=== PATIENT | female | born 1940 | race Caucasian/White ===

== ENCOUNTER 2022-05-17 08:42 | Day surgery (SDC) | payer MEDICARE, OTHER ==
[~2022-05-17] VITALS: Ht 157.5 cm; Wt 54.5 kg
[2022-05-17 09:05] VITALS: BP 130/67
[2022-05-17] MEDS ORDERED: INSU100V12 SQ (09:19)
[2022-05-17] MEDS ORDERED: INSU100C4 SQ (09:19)
[2022-05-17] MEDS ORDERED: DET2LAC PO (09:20)
[2022-05-17] MEDS ORDERED: CLON0.5T4 PO (09:22)
[2022-05-17] MEDS ORDERED: LIOT5TAB10 PO (09:23)
[2022-05-17] MEDS ORDERED: CALC-336 PO (09:23)
[2022-05-17] MEDS ORDERED: LEVO75TA7 PO (09:25)
[2022-05-17] MEDS ORDERED: LEVE750T66 PO (09:25)
[2022-05-17] MEDS ORDERED: fentaNYL/PF 50MCG/1 ML 2ML syringe ONE (09:50)
[2022-05-17] MEDS ORDERED: diphenhydrAMINE 50 mg/ml inj ONE (09:50)
[2022-05-17] MEDS ORDERED: LIDOcaine Viscous 15ml cup ONE (09:50)
[2022-05-17] MEDS ORDERED: MIDAZolam 1 MG/ML 5ML VIAL ONE (09:50)
[2022-05-17 10:11] VITALS: BP 133/70
[2022-05-17 10:21] VITALS: BP 134/74
[2022-05-17 10:31] VITALS: BP 137/64
[2022-05-17 10:41] VITALS: BP 139/71
== END 2022-05-17 10:51 | disposition home or self-care (01) ==
LOC: GI LAB 08:42
PROVIDERS: ATTEND Internal Medicine Gastroenterology
DX: K29.70 Gastritis, unspecified, without bleeding (principal)
CPT/HCPCS: 43239; J1200; J2250; J3010; J7030; Z7512; 88305; 99152; A4620

== ENCOUNTER 2024-07-17 14:37 | Outpatient (CLI) | payer MEDICARE, OTHER ==
[~2024-07-17 14:37] MED LIST: CALC-336 PO; CLON0.5T4 PO; DET2LAC PO; INSU100C4 SQ; INSU100V12 SQ; LEVE750T66 PO; LEVO75TA7 PO; LIOT5TAB10 PO
== END 2024-07-17 23:59 | disposition home or self-care (01) ==
LOC: RAD 14:37
PROVIDERS: ATTEND Physician Assistant
DX: R13.12 Dysphagia, oropharyngeal phase (principal); E11.9 Type 2 diabetes mellitus without complications; Z79.4 Long term (current) use of insulin; Z79.84 Long term (current) use of oral hypoglycemic drugs; Z79.890 Hormone replacement therapy; Z79.899 Other long term (current) drug therapy
CPT/HCPCS: 74230